=== PATIENT | male | born 1995 | race Caucasian/White ===

== ENCOUNTER 2017-08-30 11:05 | Emergency (ER) | payer OTHER ==
[~2017-08-30] VITALS: Ht 170.2 cm; Wt 65.8 kg
[2017-08-30] MEDS ORDERED: IV NORMAL SALINE 1,000ML 1,000 ML IV SCH (11:16)
[2017-08-30] MEDS ORDERED: 0.9 % SODIUM CHLORIDE 10 ML DISP.SYRIN. IV PRN (11:30)
[2017-08-30] MEDS ORDERED: HYDROmorphone PF 1 MG/ML DISP.SYRIN IV/SQ PRN (11:30)
[2017-08-30] MEDS ORDERED: IOHEXOL 300 MG/ML 75 ML VIAL. IV ONE (11:30)
--- NOTE | 2017-08-30 11:41 | RAD ---
Examination: 2 views of the left femur History: History of nail from nail gun embedded in the left thigh Comparison: None available Findings: The femoral head is within the acetabulum. There is no acute fracture or dislocation identified. A metallic radiopaque nail is identified in the medial aspect of the left thigh likely within the subcutaneous tissue. Impression: 1. Metallic radiopaque nail identified in the subcutaneous region of the medial aspect of the left thigh.
[2017-08-30] MEDS ORDERED: NAPROXEN 500 MG TABLET PO ONE (12:00)
[2017-08-30] MEDS ORDERED: LIDOCAINE 1%/EPI 1:100,000 20 ML VIAL. IJ ONE (12:00)
[2017-08-30] MEDS ORDERED: HYDROcodone/APAP 5/325MG 1 TAB TABLET PO ONE (12:00)
--- NOTE | 2017-08-30 12:05 | RAD ---
Examination: 2 views of the left femur History: History of removal of foreign body Comparison: Same day exam Findings: Interval removal of metallic nail in the medial aspect of the left proximal thigh. Impression: Interval removal of metallic nail in the medial aspect of the left proximal thigh.
[2017-08-30] MEDS ORDERED: CEPH-264 PO (12:07)
[2017-08-30] MEDS ORDERED: NAPR275T59 PO (12:07)
--- NOTE | 2017-08-30 12:08 | PHYS DOC ---
Past History Past Medical History: No Pertinent History Past Surgical History: No Surgical History Smoking: Non-smoker Alcohol Use: None Drug Use: None Adult General Chief Complaint Chief Complaint: FOREIGN BODY HPI HPI Patient is a pleasant otherwise healthy 22-year-old male who was using a nail gun to place shingles on a roof and that he is reroofing when the nail gun accident discharge placing a large nail into the medial portion of his left thigh. Patient does not describe any numbness and tingling distal to the wound, no active bleeding or excessive bleeding from the wound itself. Patient denies any other complaints. He denies drinking alcohol or using drugs. His says his tetanus shot is up-to-date he's got minimal complaints other than pain around the nail in his leg. Initially upon arrival given the fact that this is a foreign body in the anterior medial portion of the thigh near the neurovascular structures per report CT angios of the leg was initially ordered. Review of Systems Review of Systems Constitutional: Denies fever or chills [] Musculoskeletal: Denies back pain or joint pain [] Integument: Denies rash or skin lesions [] Neurologic: Denies focal weakness or sensory changes [] Current Medications Current Medications Current Medications Medications (Trade) Dose Ordered Sig/Osvaldo Start Time Stop Time Status Last Admin Dose Admin Acetaminophen/ Hydrocodone Bitart (Lortab 5/325) 1 tab 1X ONCE 08/30/17 12:00 08/30/17 12:01 Hydromorphone HCl (Dilaudid) 1 mg PRN Q15MIN PRN 08/30/17 11:30 08/30/17 11:30 DC Iohexol (Omnipaque 300 Mg/ml) 75 ml 1X ONCE 08/30/17 11:30 08/30/17 11:43 DC Lidocaine/ Epinephrine (Xylocaine 1%-Epi 1:100,000) 20 ml 1X ONCE 08/30/17 12:00 08/30/17 12:01 Sodium Chloride (Normal Saline Flush) 10 ml QSHIFT PRN 08/30/17 11:30 08/30/17 11:30 DC Allergies Allergies Allergies Coded Allergies Type Severity Reaction Last Updated Verified Penicillins Allergy Unknown 08/30/17 Yes Physical Exam Physical Exam Constitutional: Well developed, well nourished, no acute distress, non-toxic appearance. [] Skin: Warm, dry, no erythema, no rash. [] Back: No tenderness, no CVA tenderness. [] Extremities: No tenderness, no cyanosis, no clubbing, ROM intact, no edema. Patient has a very large 2-1/2 inch nail located in the medial aspect of the thigh superficially within the first 2-3 mm of the skin in the vastus medialis. He is clearly not near not near the neurovascular structure there is no active bleeding. Neurologic: Alert and oriented X 3, normal motor function, normal sensory function, no focal deficits noted. [] Psychologic: Affect normal, judgement normal, mood normal. [] Current Patient Data Vital Signs Vital Signs Date Time Temp Pulse Resp B/P (MAP) Pulse Ox O2 Delivery O2 Flow Rate FiO2 08/30/17 11:24 98.0 101 16 98 Room Air EKG EKG [] Radiology/Procedures Radiology/Procedures [] Course & Med Decision Making Course & Med Decision Making Pertinent Labs and Imaging studies reviewed. (See chart for details) On initial evaluation is clear that the patient does not need an angiogram leg as this nail is very superficial and does not cause any significant bleeding. Patient had the foreign body isolated and x-rays are completed. X-ray films initially done at 11:31 AM demonstrate a significant foreign body within the vastus medialis of the left thigh with no obvious involvement in the bone. 4 views demonstrate this fact. Procedure note: Foreign body removal left thigh consent was verbal. Patient had the wound cleaned with Betadine before introducing a cc of 1% lidocaine along the tract of the nail. Patient tolerated the procedure well using a pad or forceps I removed the nail in its entirety. Patient had no active bleeding or palpitations after the nail was removed. He had a small pressure dressing placed over the wound itself to prevent chelation of hematoma below the skin's tissue. There is a puncture wound remaining that will not be repaired given the depth of the wound and the possible contamination with skin and tissue from the pant into the wound. Patient had repeat set of films completed at 11:29 AM after the foreign body removal with no foreign body remaining on x-ray. [] Dragon Disclaimer Dragon Disclaimer This chart was dictated in whole or in part using Voice Recognition software in a busy, high-work load, and often noisy Emergency Department environment. It may contain unintended and wholly unrecognized errors or omissions. Departure Departure: Impression: Primary Impression: Foreign body (FB) in soft tissue Additional Impression: Puncture wound Disposition: 01 HOME, SELF-CARE Condition: IMPROVED Referrals: PCP,YVONNE (PCP) Patient Instructions: Puncture Wound Additional Instructions: My discharge plan Follow up: In addition patient is asked to followup with their primary doctor, within a week for followup examination and to address patient's ongoing medical conditions. Because patient does not have a regular medical doctor, a local physician Resource Sheet will be provided to establish care primary care. Patient is advised that in the Emergency Department primary complaints are addressed and only in light of known signs and symptoms. Patient should return immediately to the emergency department if new signs and symptoms develop or patient's condition worsens in any way. At time of discharge patient was in stable condition and had verbalized understanding of the discharge instructions. Although there is no foreign body noted on x-ray you could have retained non- radiopaque foreign body in the skin is tissue. This is why the wound was left open. It is very difficult to clean the puncture wounds completely he will be placed on antibiotics and pain medications and asked to follow-up with her primary care doctor to continue to monitor this wound for the evolution of infection. Patient be discharged on Keflex and Naprosyn patient's UDS was not drawn here as there is no medical indication for that test and there is no obvious chain of custody for this UDS for legal purposes. Scripts Naproxen Sodium (NAPROXEN SODIUM) 275 Mg Tablet 275 MG PO BID for 7 Days, #14 TAB Prov: JENN BILLINGS MD 08/30/17 Cephalexin (KEFLEX) 500 Mg Capsule 500 MG PO QID for 10 Days, #40 CAP Prov: JENN BILLINGS MD 08/30/17 Problem Qualifiers JENN BILLINGS MD Aug 30, 2017 12:08
[2017-08-30 12:09] VITALS: BP 113/77
== END 2017-08-30 12:18 | disposition home or self-care (01) ==
LOC: ER 11:05
DX: S71.142A Puncture wound with foreign body, left thigh, initial encounter (principal); Z88.0 Allergy status to penicillin; W29.4XXA Contact with nail gun, initial encounter; Y93.89 Activity, other specified; Y99.8 Other external cause status; Y92.89 Other specified places as the place of occurrence of the external cause
CPT/HCPCS: 73552; 96372; 99284-25